=== PATIENT | female | born 1985 | race Two or more races ===

== ENCOUNTER 2018-02-19 09:00 | Observation (INO) | payer MEDICAID ==
[2018-02-19] MEDS ORDERED: LABE100T PO (09:30)
[2018-02-19] MEDS ORDERED: PREN-153 OR (09:30)
[2018-02-19] MEDS ORDERED: FERR27TA2 PO (09:30)
== END 2018-02-19 10:10 | disposition home or self-care (01) | DRG 566 ==
LOC: LDRP 09:00 → UNDODISOB 10:10
PROVIDERS: ADMIT Specialist; ATTEND Specialist
DX: O13.3 Gestational [pregnancy-induced] hypertension without significant proteinuria, third trimester (principal); Z3A.28 28 weeks gestation of pregnancy
CPT/HCPCS: 59025; 76818; 81002; G0378

== ENCOUNTER 2018-02-23 10:01 | Observation (INO) | payer SELFPAY ==
[~2018-02-23] VITALS: Ht 157.5 cm; Wt 72.6 kg
[~2018-02-23 10:01] MED LIST: FERR27TA2 PO; LABE100T PO; PREN-153 OR
[2018-02-23] MEDS ORDERED: TERBUTALINE SULFATE 1 MG/ML 1ML VIAL SC ONE ×2 (11:10→11:15)
[2018-02-23] MEDS ORDERED: TERBUTALINE SULFATE 1 MG/ML 1ML VIAL SC SCH (11:30)
[2018-02-23] MEDS ORDERED: BETAMETHASONE ACET (6MG/ML) 5ML VIAL IM ONE (12:00)
== END 2018-02-23 12:40 | disposition home or self-care (01) | DRG 778 ==
LOC: LDRP 10:01
PROVIDERS: ADMIT Obstetrics & Gynecology; ATTEND Obstetrics & Gynecology
DX: O60.03 Preterm labor without delivery, third trimester (principal); O10.913 Unspecified pre-existing hypertension complicating pregnancy, third trimester; Z3A.29 29 weeks gestation of pregnancy
CPT/HCPCS: 59025; 76818; 81002; G0378; J0702; J3105

== ENCOUNTER 2018-03-25 10:30 | Observation (INO) | payer MEDICAID ==
[~2018-03-25 10:30] MED LIST changes: +NIF10C GT
== END 2018-03-25 11:20 | disposition home or self-care (01) | DRG 563 ==
LOC: LDRP 10:30
PROVIDERS: ADMIT Obstetrics & Gynecology; ATTEND Obstetrics & Gynecology
DX: O60.03 Preterm labor without delivery, third trimester (principal); O26.893 Other specified pregnancy related conditions, third trimester; R10.9 Unspecified abdominal pain; Z3A.33 33 weeks gestation of pregnancy
CPT/HCPCS: 59025; 81002; G0378

== ENCOUNTER 2018-04-01 11:50 | Observation (INO) | payer MEDICAID ==
[~2018-04-01 11:50] MED LIST changes: -LABE100T PO
== END 2018-04-01 12:45 | disposition home or self-care (01) | DRG 563 ==
LOC: LDRP 11:50
PROVIDERS: ADMIT Obstetrics & Gynecology; ATTEND Obstetrics & Gynecology
DX: O60.03 Preterm labor without delivery, third trimester (principal); O10.913 Unspecified pre-existing hypertension complicating pregnancy, third trimester; Z3A.34 34 weeks gestation of pregnancy
CPT/HCPCS: 59025; 81002; G0378

== ENCOUNTER 2018-04-10 15:55 | Observation (INO) | payer MEDICAID | END 2018-04-10 16:47 | disposition home or self-care (01) | DRG 563 | LOC: LDRP 15:55 | PROVIDERS: ADMIT Obstetrics & Gynecology; ATTEND Obstetrics & Gynecology | DX: O60.03 Preterm labor without delivery, third trimester (principal); O62.9 Abnormality of forces of labor, unspecified; Z3A.35 35 weeks gestation of pregnancy | CPT/HCPCS: 59025; 81002; G0378 ==

== ENCOUNTER 2018-04-17 16:05 | Observation (INO) | payer MEDICAID ==
[2018-04-17 16:47] LABS: Basophils # (auto) 0 uL; Basophils % (auto) 0.3 % (0.0-2.0); Eosinophils # (auto) 0.1 uL; Eosinophils % (auto) 0.6 % (0.0-7.0); Hematocrit 34.8 % (36.0-46.0); Hemoglobin 11.6 g/dL (12.2-16.2); Lymphocytes # (auto) 1.1 uL; Lymphocytes % (auto) 8.9 % (10.0-50.0); Mean Corpuscular Hemoglobin 29.9 pg (28.0-32.0); Mean Corpuscular Hgb Conc. 33.3 g/dL (32.0-36.0); Mean Corpuscular Volume 89.8 fL (80.0-100.0); Monocytes # (auto) 0.6 uL; Monocytes % (auto) 4.6 % (0.0-12.0); Neutrophils % (auto) 85.6 % (37.0-80.0); Nucleated Red Blood Cells % 0.1 %; Platelet Count (auto) 203 10^3/uL (140-450); Red Blood Cells 3.88 10^6/uL (4.0-5.20); Red Cell Distribution Width 14.1 % (11.8-14.3); White Blood Cell 12.9 10^3/uL (4.4-10.8)
[2018-04-17 17:05] LABS: Albumin 2.8 g/dL (3.4-5.0); BUN/Creatinine Ratio 18.6; Bilirubin, Total 0.4 mg/dL (0.2-1.0); Calcium 8.4 mg/dL (8.5-10.1); Potassium 3.6 mmol/L (3.5-5.1); Total Protein 7.2 g/dL (6.4-8.2); Uric Acid 3.2 mg/dL (2.6-6.0)
[2018-04-17 17:07] LABS: Urine Bacteria FEW /hpf (None Seen); Urine Blood Negative /uL (Negative); Urine Specific Gravity 1.015 (1.001-1.035); Urine WBC 1 /hpf (0 - 5)
[2018-04-17 17:13] LABS: INR 0.93 (0.9-1.15); Partial Thromboplastin Time 28.9 sec (23.78-33.04)
== END 2018-04-17 17:50 | disposition home or self-care (01) | DRG 566 ==
LOC: LDRP 16:05
PROVIDERS: ADMIT Obstetrics & Gynecology; ATTEND Obstetrics & Gynecology
DX: O24.419 Gestational diabetes mellitus in pregnancy, unspecified control (principal); O10.913 Unspecified pre-existing hypertension complicating pregnancy, third trimester; O26.893 Other specified pregnancy related conditions, third trimester; M54.9 Dorsalgia, unspecified; Z3A.36 36 weeks gestation of pregnancy
CPT/HCPCS: 36415; 59025; 76818; 80053; 81001; 84550; 85025; 85379; 85610; 85730; G0378

== ENCOUNTER 2018-04-25 08:00 | Observation (INO) | payer MEDICAID ==
[2018-04-25 10:06] LABS: Protein, Urine 5.4 mg/dL (0.0-11.9)
[2018-04-25 10:40] LABS: 24 Hr. Total Protein, Urine 178.2 mg/24 Hr (<149.1)
== END 2018-04-25 10:00 | disposition home or self-care (01) | DRG 566 ==
LOC: LDRP 08:00
PROVIDERS: ADMIT Obstetrics & Gynecology; ATTEND Obstetrics & Gynecology
DX: O13.3 Gestational [pregnancy-induced] hypertension without significant proteinuria, third trimester (principal); O60.03 Preterm labor without delivery, third trimester; Z3A.37 37 weeks gestation of pregnancy
CPT/HCPCS: 59025; 76818; 81002; 84156; G0378

== ENCOUNTER 2018-04-27 07:35 | Inpatient (IN) | payer MEDICAID ==
[~2018-04-27] VITALS: Ht 157.5 cm; Wt 85.3 kg
[2018-04-27] MEDS: LACTATED RINGER'S 1,000 ML IV SCH ×2 (08:00→16:05)
[2018-04-27] MEDS ORDERED: LACT. RINGERS/OXYTOCIN 20UNITS 1,000 ML IV SCH (08:05)
[2018-04-27] MEDS ORDERED: NALBUPHINE HCL 10 MG/1ml INJECTION IV PRN (08:15)
[2018-04-27] MEDS ORDERED: PHISODERM TOP SOLN 240ML BTL TOP PRN (08:15)
[2018-04-27] MEDS ORDERED: DERMOPLAST 60ML BOTTLE TOP PRN (08:15)
[2018-04-27] MEDS ORDERED: WITCH HAZEL-GLYCERIN PAD TOP PRN (08:15)
[2018-04-27] MEDS ORDERED: METHYLERGONOVINE MALEATE 0.2 MG/ML AMP IM PRN (08:15)
[2018-04-27] MEDS ORDERED: LIDOCAINE 2% (LOCAL ANESTH.) PF 5ml SDV ID PRN (08:15)
[2018-04-27] MEDS ORDERED: CARBOPROST TROMETHAMINE 250 MCG/1ML VIAL IM PRN (08:15)
[2018-04-27 09:01] LABS: Basophils # (auto) 0 uL; Basophils % (auto) 0.2 % (0.0-2.0); Eosinophils # (auto) 0 uL; Eosinophils % (auto) 0.3 % (0.0-7.0); Hematocrit 37.6 % (36.0-46.0); Hemoglobin 12.4 g/dL (12.2-16.2); Lymphocytes # (auto) 1.7 uL; Lymphocytes % (auto) 15.6 % (10.0-50.0); Mean Corpuscular Hemoglobin 29.5 pg (28.0-32.0); Mean Corpuscular Volume 89.3 fL (80.0-100.0); Monocytes # (auto) 0.4 uL; Monocytes % (auto) 3.4 % (0.0-12.0); Neutrophils # (auto) 8.6 uL; Neutrophils % (auto) 80.5 % (37.0-80.0); Platelet Count (auto) 217 10^3/uL (140-450); Red Blood Cells 4.21 10^6/uL (4.0-5.20); White Blood Cell 10.7 10^3/uL (4.4-10.8)
[2018-04-27 09:06] LABS: Urine Bacteria MANY /hpf (None Seen); Urine Blood 3+ /uL (Negative); Urine Specific Gravity 1.024 (1.001-1.035); Urine WBC 14 /hpf (0 - 5)
[2018-04-27 09:17] LABS: Alcohol, Urine < 3.0 mg/dL (0-5); Amphetamine Screen, Urine NEGATIVE (NEGATIVE); Barbiturate Scree,Urine NEGATIVE (NEGATIVE); Benzodiazephine Screen, Urine NEGATIVE (NEGATIVE); Cannabinoid Screen, Urine NEGATIVE (NEGATIVE); Cocaine Screen, Urine NEGATIVE (NEGATIVE); Opiate Scree,Urine NEGATIVE (NEGATIVE); Phencyclidine Screen, Urine NEGATIVE (NEGATIVE)
[2018-04-27 09:19] LABS: Albumin 2.7 g/dL (3.4-5.0); BUN/Creatinine Ratio 17.2; Bilirubin, Total 0.2 mg/dL (0.2-1.0); Calcium 8.1 mg/dL (8.5-10.1); INR 0.9 (0.9-1.15); Prothrombin Time 9.7 sec (9.27-12.13)
[2018-04-27 11:45] VITALS: BP 127/83
[2018-04-27] MEDS ORDERED: RHO (D) IMMUNE GLOBULIN 300 MCG INJ IM ONE (13:15)
[2018-04-27 15:00] VITALS: BP 120/68
[2018-04-27] MEDS ORDERED: IBUPROFEN 600 MG TAB PO ONE (17:45)
[2018-04-27] MEDS ORDERED: TETANUS-DIPTH-ACEL PERTUSSIS 0.5ML SYRG IM ONE (18:00)
[2018-04-27] MEDS ORDERED: IBUPROFEN 600 MG TAB PO PRN ×2 (18:00)
[2018-04-27] MEDS ORDERED: ACETAMINOPHEN 325 MG TAB PO PRN (18:00)
[2018-04-27 19:21] VITALS: BP 127/82
[2018-04-27 23:00] VITALS: BP 123/74
[2018-04-28 03:00] VITALS: BP 108/63
[2018-04-28 06:40] VITALS: BP 129/82
[2018-04-28] MEDS ORDERED: NIF10C GT (06:55)
[2018-04-28 09:38] VITALS: BP 124/67
[2018-04-28] MEDS ORDERED: DOCUSATE CALCIUM 240 MG CAP PO SCH (10:00)
[2018-04-29 04:06] LABS: RPR Non Reactive (Non Reactive)
== END 2018-04-28 11:25 | disposition home or self-care (01) | DRG 560 ==
LOC: OBSVTOIN 07:35 → LDRP 07:35
PROVIDERS: ADMIT Obstetrics & Gynecology; ATTEND Obstetrics & Gynecology
PROC: 10E0XZZ Delivery of Products of Conception, External Approach (ICD-10-PCS; principal; 2018-04-27)
PROC: 0HQ9XZZ Repair Perineum Skin, External Approach (ICD-10-PCS; 2018-04-27)
PROC: 3E0234Z Introduction of Serum, Toxoid and Vaccine into Muscle, Percutaneous Approach (ICD-10-PCS; 2018-04-27)
PROC: 30233S1 Transfusion of Nonautologous Globulin into Peripheral Vein, Percutaneous Approach (ICD-10-PCS; 2018-04-27)
DX: O13.4 Gestational [pregnancy-induced] hypertension without significant proteinuria, complicating childbirth (principal); O72.1 Other immediate postpartum hemorrhage; O70.0 First degree perineal laceration during delivery; Z37.0 Single live birth; Z3A.38 38 weeks gestation of pregnancy; Z23 Encounter for immunization
CPT/HCPCS: 36415; 59025; 59409; 80053; 80307; 81001; 85025; 85610; 85730; 86592; 86850; 86870; 86900; 86901; 90384; 90715; 96365; 96366; 96372; J2001; J2590